=== PATIENT | female | born 1985 | race African-American/Black ===

== ENCOUNTER 2019-10-12 20:00 | Emergency (ER) | payer SELFPAY ==
[~2019-10-12] VITALS: Ht 175.3 cm; Wt 74.3 kg
[2019-10-12] MEDS ORDERED: CEFTRIAXONE PMX 1GM/50ML 50 ML IV ONE (21:00)
[2019-10-12] MEDS ORDERED: SODIUM CHLORIDE FLUSH 10ML SYR IVF ONE (21:00)
[2019-10-12] MEDS ORDERED: ACETAMINOPHEN 500 MG TABLET PO ONE (21:00)
[2019-10-12] MEDS ORDERED: CEFTRIAXONE PMX 1GM/50ML 50 ML ONE (21:08)
[2019-10-12] MEDS ORDERED: ACETAMINOPHEN 500 MG TABLET ONE (21:08)
--- NOTE | 2019-10-12 21:13 | NUR ---
PT SITTING UP ON GURNEY, MONITORS APPLIED, SIDERAILS UP X2, IV SITE STARTED, CALL LIGHT WITHIN REACH. PROVIDED PT WITH BREAST PUMP PER PA VERBAL ORDER
--- NOTE | 2019-10-12 21:21 | NUR ---
PT MEDICATED PER MAR, IV ABX INFUSING AFTER 2 SET'S BLOOD C/X'S DRAWN
[2019-10-12] MEDS ORDERED: METH5TAB6 PO (21:26)
[2019-10-12 21:28] LABS: BASOPHILS # (AUTO) 0.01 x10^3/uL (0-0.1); BASOPHILS % (AUTO) 0 % (0-1); EOSINOPHILS # (AUTO) 0.06 x10^3/uL (0-0.4); EOSINOPHILS % (AUTO) 1 % (1-7); LYMPHOCYTES # (AUTO) 0.94 x10^3/uL (1-3.4); LYMPHOCYTES % (AUTO) 16 % (22-44); MD NO; MEAN CORPUSCULAR HEMOGLOBIN 31.2 pg (27.0-34.8); MEAN CORPUSCULAR HGB CONC 33.6 g/dL (32.4-35.8); MEAN CORPUSCULAR VOLUME 92.8 fL (80-100); MEAN PLATELET VOLUME 8.8 fL (7.4-10.4); MONOCYTES # (AUTO) 0.36 x10^3/uL (0.2-0.8); MONOCYTES % (AUTO) 6 % (2-9); NEUTROPHILS # (AUTO) 4.45 x10^3/uL (1.8-6.8); NEUTROPHILS % (AUTO) 76 % (42-75); PLATELET COUNT 217 x10^3/uL (130-400); RED BLOOD COUNT 4.34 x10^6/uL (3.82-5.3); RED CELL DISTRIBUTION WIDTH 13.1 % (9.6-15.2)
[2019-10-12 21:38] LABS: ALANINE AMINOTRANSFERASE 30 U/L (12-78); ALBUMIN 4.7 g/dL (3.4-5.0); ANION GAP 8 mmol/L (5-15); CALCIUM 9.5 mg/dL (8.5-10.1); CHLORIDE 106 mmol/L (98-107); CREATININE 0.71 mg/dL (0.55-1.02)
[2019-10-12 21:40] LABS: ALKALINE PHOSPHATASE 69 U/L (45-117); BILIRUBIN,TOTAL 0.4 mg/dL (0.2-1.0); TOTAL PROTEIN 8.8 g/dL (6.4-8.2)
--- NOTE | 2019-10-12 21:48 | NUR ---
PA AT PT'S BEDSIDE FOR RECHECK
[2019-10-12 21:51] VITALS: BP 115/91
== END 2019-10-12 22:04 | disposition home or self-care (01) ==
LOC: ED 21:20
DX: N61.0 Mastitis without abscess (principal); M79.10 Myalgia, unspecified site; R00.0 Tachycardia, unspecified
CPT/HCPCS: 36415; 80053; 85025; 87040; 96365; 99284; J0696